=== PATIENT | female | born 1955 | race Caucasian/White ===

== ENCOUNTER 2017-06-06 09:07 | Inpatient (IN) | payer MEDICARE ==
[~2017-06-06] VITALS: Ht 170.1 cm; Wt 91.9 kg
--- NOTE | ~2017-06-06 | PR ---
[place], [place] PROGRESS NOTE NAME: EFREN BARDALES UNIT #: [id number] ROOM: 312 DOCTOR: DIPTI RENTERIA MD BIRTHDATE: [birth year] DOS: 06/15/2017 CHIEF COMPLAINT: "I am okay." SUMMARY OF THE VISIT: The patient was interviewed as she was eating her breakfast. As opposed to yesterday, she was much more alert. She made eye contact and she was able to engage in somewhat meaningful conversation. She did not just cart [place] respond yes to everything, but did seem to attempt to engage and answer appropriately. Most of her responses still continued to be very short and simple, but there did seem to be at least the effort made to engage. MENTAL STATUS: She is alert and oriented to self. It is unclear if she realizes she is in the hospital. She is certainly not oriented to time. Mood does seem to be trending towards euthymia. Affect is more appropriate. There is no wagner or psychosis. Short term memory remains exceedingly poor. PLAN: I will maintain her current dose of Remeron and Zyprexa, continue the same doses of the Exelon and Namenda. Engage in individual and james milieu activity, returning to the least restrictive environment when psychiatrically stable. DIPTI RENTERIA MD CM:PNTRANS [id number] DIPTI RENTERIA MD 06/15/17 0946 interface
--- NOTE | ~2017-06-06 | PR ---
[place], [place] PROGRESS NOTE NAME: EFREN BARDALES UNIT #: [id number] ROOM: 312 DOCTOR: BRONWYN FAY MD BIRTHDATE: [birth year] DOS: 06/10/2017 SUBJECTIVE: The patient seen and I spoke with the staff. Per staff, the patient is not throwing up now, she is getting IV fluid. She did not eat anything since last night. The patient was on her bed. She reports doing "okay," but then keeps on repeating yes and yes and not able to engage into any kind of meaningful conversation. MENTAL STATUS EXAMINATION: Pleasant and cooperative. Described her mood as "okay." Affect, mood congruent. Not in any distress. She was repeating the same word that I was asking her. Thought process seems to be disorganized and confabulatory in nature. It does not make any sense. She was not in any distress. PLAN: 1. Continue current medication and care. 2. Continue redirection. 3. Supportive care. BRONWYN FAY MD CM:PNTRANS [phone] BRONWYN FAY MD 06/10/172249 interface
--- NOTE | ~2017-06-06 | PR ---
[place], [place] PROGRESS NOTE NAME: EFREN BARDALES UNIT #: [id number] ROOM: 312 DOCTOR: DIPTI RENTERIA MD BIRTHDATE: [birth year] DOS: 06/17/2017 CHIEF COMPLAINT: "Yes." SUMMARY OF THE VISIT: The patient was interviewed as she rested quietly in bed. She engaged in conversation, half the time it was nonsensical, at other times, she almost strung entire sentence together. She still is very confused and disoriented, but is able to be much more engaging. She made eye contact and did at least attempt to converse. There was no agitation or aggression. There still seems to be a component of depression present, but there is no wagner or psychotic symptoms noted. MENTAL STATUS: She is alert and oriented to self, possibly place, although doubtful not to time. Mood remains still depressed. Affect is blunted and constricted. She is on the verge of tears at times. There is no wagner, hypomania or psychosis. She processes information extremely slowly. Responses are nonsensical at times and other times they are on the border of being sensical. Short term, intermediate memory are poor. PLAN: I will maintain her current psychotropic regimen, continue to engage in individual and james milieu activity with the plan to return to the least restrictive environment when psychiatrically stable. DIPTI RENTERIA MD CM:PNTRANS [id number] DIPTI RENTERIA MD 06/17/17 1031 interface
--- NOTE | ~2017-06-06 | PR ---
[place], [place] PROGRESS NOTE NAME: EFREN BARDALES UNIT #: [id number] ROOM: 312 DOCTOR: DIPTI RENTERIA MD BIRTHDATE: [birth year] DOS: 06/12/2017 CHIEF COMPLAINT: "I don't feel good." SUMMARY OF THE VISIT: The patient was interviewed in the dining area where she sat with an entire plate of breakfast in front of her untouched. She reported to me that she did not feel good and was actually able to elaborate that she was somewhat nauseated. When I told her I would get her something for it, she thanked me. She actually engaged in more meaningful conversation today than she had previously. She did not just [place] respond yes to everything; in fact, she was able to carry on somewhat of a conversation. MENTAL STATUS: She remains alert and oriented to self only; however, it is unclear if she realizes she is in the hospital and she is certainly not oriented to time. Mood still seems somewhat depressed and her responses are short, simple and she speaks almost in a whisper at times. There is no symptom suggestive of wagner or hypomania. There is no agitation or aggression. No overt auditory or visual hallucinations or paranoia. PLAN: I will go ahead and renew her p.r.n. Ativan in case she requires intervention. I will check a valproic acid level in the morning to ensure that it is therapeutic and not subtherapeutic or too high. We will continue to engage in individual and james milieu activity with the plan to seek a long-term care placement. DIPTI RENTERIA MD CM:PNTRANS [phone] DIPTI RENTERIA MD 06/12/17 1036 interface
--- NOTE | ~2017-06-06 | PR ---
[place], [place] PROGRESS NOTE NAME: EFREN BARDALES UNIT #: [id number] ROOM: 312 DOCTOR: DIPTI RENTERIA MD BIRTHDATE: [birth year] DOS: 06/11/2017 CHIEF COMPLAINT: "Oh yes, there it is of course." SUMMARY OF THE VISIT: The patient was interviewed in the dining area. She had completed her breakfast. She was sitting quietly watching television. She attempted to engage in conversation, but she was so disjointed, disoriented and fragmented she could not carry on a simple conversation. Most of her responses were nonsensical, still a mix of perseveration and echolalia. She was pleasant, however. Nurses report some issues with nausea and vomiting, perhaps related to the Trintellix. Mood still seems to be depressed. Sleep and appetite are somewhat disturbed. MENTAL STATUS: She is alert and oriented to self only. Her disjointed, disorganized, disoriented speech is fragmented and piecemeal. She is unable to form even a complete sentence. It is unclear if there are delusions because she is not able to make much sense at all. PLAN: I will discontinue the Trintellix in lieu of Remeron 15 mg at bedtime. Remeron should dramatically aid sleep and appetite. It should also decrease her nausea and vomiting. We will continue to engage in individual and james milieu activity, returning to the least restrictive environment when psychiatrically stable. DIPTI RENTERIA MD CM:PNTRANS [phone] DIPTI RENTERIA MD 06/11/17 0945 interface
--- NOTE | ~2017-06-06 | CON ---
[place], [place] REPORT OF CONSULTATION NAME: EFREN BARDALES UNIT #: [id number] ROOM: 312 DOCTOR: SHIRLEY ALMANZAR ED.D (ALEJANDRO) BIRTHDATE: [birth year] DOS: 06/11/2017 HISTORY OF PRESENT ILLNESS: The patient is a 61-year-old female referred by Dr. Goodman for competency evaluation. At the present time, she is on the [facility]. She is , but cannot answer questions regarding her marriage or children. This patient's medical history is pertinent for renal failure, dementia and anemia. Her medications include Remeron, Depakote, Reglan, Exelon and Namenda. I do not know her substance abuse history, but she does not use any substances at the present time. This patient was awake, alert and oriented to person only. She has no idea where she is or what the year is or what the date She could not name her family members and is clearly not competent to make informed healthcare decisions. In my opinion, guardianship should be established. I did complete paperwork for probate court for guardianship. Her short and long-term memories are markedly impaired. DIAGNOSES: Major neurocognitive disorder -- Alzheimer's disease. RECOMMENDATIONS: In my opinion, this patient needs a guardian. Thank you very much for this consult. SHIRLEY ALMANZAR ED.D CM:CONSTR:REPORT OF CONSULTATION 1307 06/11/172053 interface DIPTI GOODMAN MD
--- NOTE | ~2017-06-06 | PR ---
[place], [place] PROGRESS NOTE NAME: EFREN BARDALES UNIT #: [id number] ROOM: 312 DOCTOR: DIPTI RENTERIA MD BIRTHDATE: [birth year] DOS: 06/08/2017 CHIEF COMPLAINT: "Oh, yes." SUMMARY OF THE VISIT: The patient was interviewed as she sat in the dining area. Upon approach, she did attempt to engage in conversation; however, she remains horribly confused and her responses are nonsensical and disjointed. She said yes to most everything that was asked. During the period of time that I was interviewing her, she did laugh a little bit under her breath. I am unclear whether this represents a pseudobulbar affective symptom or not. I have discussed this with the nurses to monitor this. They have noticed one spontaneous crying episode as well. We will continue to monitor this over the next couple of days to determine whether or not we want to go ahead and initiate Nuedexta therapy. MENTAL STATUS: She is alert and oriented to self. I doubt very much she realizes where she is at and she is certainly not oriented to time. Mood does still seem to be depressed. Whether this is solely depression or some pseudobulbar affect is unclear. There is no hypomania or wagner. There are no auditory or visual hallucinations noted. Short term memory is exceedingly poor. PLAN: At the present time, I will maximize out the dose of Trintellix to 20 mg a day, hoping to impact positively on her mood as well as improving cognition and concentration. I will maximize Exelon patch out as well, bringing it from 9.5 to 13.3 mg daily. Nurses will monitor over the next couple of days for episodes of inappropriate laughing or crying and then we will make a decision regarding the Nuedexta therapy. We will continue to engage her in individual and james milieu activity, returning to the least restrictive environment when psychiatrically stable. DIPTI RENTERIA MD CM:PNTRANS 1021 DIPTI RENTERIA MD 06/08/17 1019 interface
--- NOTE | ~2017-06-06 | PR ---
[place], [place] PROGRESS NOTE NAME: EFREN BARDALES UNIT #: [id number] ROOM: 312 DOCTOR: DIPTI RENTERIA MD BIRTHDATE: [birth year] DOS: 06/13/2017 CHIEF COMPLAINT: The patient was very somnolent. SUMMARY OF THE VISIT: The patient was attempted to be interviewed just before she entered the court hearing for continued length of stay. She was rather somnolent. She was visibly shaking because she was chilled. Nurses did obtain for her a heated blanket which did seem to help. She remains grossly confused and disoriented episodically compliant and noncompliant with her medications. She does continue to make herself gag with some of the medicines and has actually vomited several times after taking her pills. MENTAL STATUS: Limited due to her level of somnolence, but she remains grossly confused and disorganized. PLAN: At this point is to discontinue the Depakote as these pills tend to be rather large in size and may be actually triggering a gag response. I will switch the Remeron to Remeron SolTab which will help with compliance. I will add Risperdal M-Tab 0.5 mg twice daily to decrease some of the delusions and the mood lability. We will continue to engage in individual and james milieu activity with the ultimate plan to return to the least restrictive environment when psychiatrically stable. DIPTI RENTERIA MD CM:PNTRANS [id number] DIPTI RENTERIA MD 06/13/17 1019 interface
--- NOTE | ~2017-06-06 | WRIGHTHP ---
[place], [place] PATIENT HISTORY AND PHYSICAL EXAM NAME: EFREN BARDALES UNIT #: [id number] ROOM: 312 DOCTOR: DIPTI RENTERIA MD BIRTHDATE: [birth year] DOS: 06/07/2017 CHIEF COMPLAINT: Yes that is right, yes" SUMMARY: OF THE VISIT: This is a 61-year-old white female who was admitted to the [facility] due to a significant change in mental status. The patient had been residing at home with her and manager corporate strategy and has become increasingly more verbal and physically aggressive. The patient has been resistive to care and has become aggressive while attempting ADLs. Most recently, she has also verbalized that she wanted to kill herself, stating that life is not worth living. The patient has a history of end-stage dementia and is extremely confused and disoriented and may require placement ultimately when she is medically stabilized. PAST MEDICAL HISTORY: Remarkable for anemia, unknown renal disease and an unspecified disorder of the ureters. MENTAL STATUS: The patient is alert and oriented to self. Her responses are short, simple and at times nonsensical. She is rather perseverative and also engages in echolalia. The patient is extremely confused and disjointed in her thinking and is unable to even form a simple sentence that makes sense. She does have significant processing difficulty. Short-term memory seems horribly disturbed as does intermediate memory. DIAGNOSES: Major depression, recurrent, rule out intermittent explosive disorder. PLAN: I have switched her from Aricept to Exelon patch and started her at 4.6 mg a day, which I will go ahead and increase to 9.5 mg daily. I have maintained her on Namenda 10 mg twice daily. Given the fact that there is a depressive component present, I will add Trintellix 10 mg a day. The Trintellix has been shown also to improve cognitive functioning. At this point, we will go ahead and proceed with a PASAR and look for possible placement. Given the amount of confusion and level of care that she requires, I do not believe it is safe for her to return home. She requires 24-hour supervision to prevent harm to self and others. We will discharge then when psychiatrically stable. [place], [place] PATIENT HISTORY AND PHYSICAL EXAM NAME: EFREN BARDALES UNIT #: [id number] ROOM: [facility] DOCTOR: DIPTI RENTERIA MD BIRTHDATE: [birth year] DIPTI RENTERIA MD CM:HISPHYS:PATIENT HISTORY AND PHYSICAL EXAMINATION 3 2 DIPTI RENTERIA MD 06/07/17 0910 interface
--- NOTE | ~2017-06-06 | PR ---
[place], [place] PROGRESS NOTE NAME: EFREN BARDALES UNIT #: [id number] ROOM: 312 DOCTOR: DIPTI RENTERIA MD BIRTHDATE: [birth year] DOS: 06/16/2017 CHIEF COMPLAINT: "Yes." SUMMARY OF THE VISIT: The patient was interviewed or attempted to be interviewed as she rested quietly in bed. She engaged in brief conversation. Most of it was nonsensical, but she did attempt to make eye contact and did attempt to respond. This is in perdomo contrast to her previous behavior. She seems more alert and more engaging. MENTAL STATUS: She is alert and oriented to self. It is unclear if she realizes she is in the hospital. She is certainly not oriented to time. Mood does seem to be stabilizing and she is more euthymic. Affect is much more appropriate. She still is fragmented and disjointed in her thinking. She rambles at times nonsensically. Short-term memory is exceedingly poor. PLAN: I will augment with Deplin at this point. I do not have genetic testing to support the use, but at this point, it would not hurt her to supplement for a neurotransmitter synthesis. She is so decompensated at such a young age, we will see what we can do to impact positively on her cognitive status. We will engage in individual and james milieu activity, returning to the least restrictive environment when psychiatrically stable. DIPTI RENTERIA MD CM:PNTRANS [phone] DIPTI RENTERIA MD 06/16/17 0908 interface
--- NOTE | ~2017-06-06 | PR ---
[place], [place] PROGRESS NOTE NAME: EFREN BARDALES UNIT #: [id number] ROOM: 312 DOCTOR: DIPTI RENTERIA MD BIRTHDATE: [birth year] DOS: 06/18/2017 CHIEF COMPLAINT: "Oh ya thank you." SUMMARY OF THE VISIT: The patient was interviewed as she was wheeling herself down the [place]a. She stopped and engaged in conversation with me. She still remains confused, but does attempt to make good eye contact and attempts to converse more so than she had previously. While she does say yes frequently, she also intermixes that with short sentences and then at times inappropriate comments. She has not been agitated or aggressive. MENTAL STATUS: She is alert and oriented to self. It is unclear if she realizes she is in the hospital and she is certainly not oriented to time. Mood does seem to be strongly trending towards euthymia. Affect is much more appropriate. There is no symptom suggestive of wagner or hypomania. There are no gross psychotic symptoms. Short term memory is exceedingly poor. PLAN: I will maintain her current psychotropic regimen, continue to engage her in individual and james milieu activity with the ultimate plan to discharge to the least restrictive environment when stable. DIPTI RENTERIA MD CM:PNTRANS [phone] DIPTI RENTERIA MD 06/18/17 0936 interface
--- NOTE | ~2017-06-06 | PR ---
[place], [place] PROGRESS NOTE NAME: EFREN BARDALES UNIT #: [id number] ROOM: 312 DOCTOR: DIPTI RENTERIA MD BIRTHDATE: [birth year] DOS: 06/14/2017 CHIEF COMPLAINT: The patient was nonverbal and did not make eye contact. SUMMARY OF THE VISIT: The patient was attempted to be interviewed as she was to eat her breakfast in the dining area and entire tray of breakfast sat in front of her. The nurse's aide did on several occasions attempt to offer her food. She stared off blankly straight into space. As I kneel down next to her and attempted to engage her in conversation, she did not make any effort to make eye contact. In the past, she at least verbalized yes or no answers; at this point in time, she made no attempt to respond in any way at all. MENTAL STATUS: It is limited due to her lack of participation. Nurses report significant decrease in p.o. intake as well as increased depression. PLAN: I will discontinue her Risperdal M-Tab and utilize Zyprexa Zydis 5 mg at bedtime. This should augment the effectiveness of the antidepressant better as well as significantly stimulating appetite. I will check a CMP just to make certain that medically she is not compromised. We will engage in individual and james milieu activities, returning to the least restrictive environment when psychiatrically stable. DIPTI RENTERIA MD CM:PNTRANS 0945 DIPTI RENTERIA MD 06/14/17 0943 interface
--- NOTE | ~2017-06-06 | PR ---
[place], [place] PROGRESS NOTE NAME: EFREN BARDALES UNIT #: [id number] ROOM: 312 DOCTOR: BRONWYN FAY MD BIRTHDATE: [birth year] DOS: 06/09/2017 SUBJECTIVE: The patient seen and spoke with the staff. Per staff, patient was throwing up all day yesterday after the increment of Trintellix and also Exelon. This morning when I went to see her, she was in the bed, incoherent, talking nonsensical. MENTAL STATUS EXAMINATION: The patient was pleasant and cooperative. Thought process was disorganized with confabulation, incoherent, not in acute distress. Not a threat to herself or anyone else. PLAN: 1. I will reduce Trintellix to 5 mg twice a day. 2. Continue redirection. 3. Supportive care. 4. Encourage p.o. fluid. BRONWYN FAY MD CM:PNTRANS [id number] BRONWYN FAY MD 06/10/17 0030 interface
[2017-06-06] MEDS ORDERED: NAMENDA10 MG PO (09:12)
[2017-06-06] MEDS ORDERED: ARICEPT10 M1 PO (09:13)
[2017-06-06] MEDS ORDERED: SEROQUEL25 MG PO (09:13)
[2017-06-06 13:27] VITALS: BP 116/73
[2017-06-06 20:00] VITALS: BP 120/80
[2017-06-07 07:04] LABS: BASO % 0.3 % (0.0-1.0); EOS # 0.1 10*3/uL (0.0-0.4); HEMATOCRIT 37.6 % (37.0-47.0); HEMOGLOBIN 12.5 g/dl (12.0-16.0); LYMPH # 2.3 10*3/uL (1.3-4.4); LYMPH % 38.7 % (27.0-41.0); MEAN CELL VOLUME 93.3 fl (81.0-99.0); MEAN CORPUSCULAR HGB CONC 33.2 g/dl (33.0-37.0); MEAN PLATELET VOLUME 10.1 fl (9.6-12.3); MONO # 0.5 10*3/uL (0.1-1.0); MONO % 8.1 % (3.0-9.0); NEUT % 50.7 % (47.0-73.0); PLATELET COUNT AUTOMATED 233 10*3/uL (130-400); RED BLOOD COUNT 4.03 10*6/uL (4.10-5.10); RED CELL DISTRI WIDTH 12.3 % (0-14.5); WHITE BLOOD COUNT 5.9 10*3/uL (4.8-10.8)
[2017-06-07 07:13] LABS: CHLORIDE 109 mmol/L (98-107); SODIUM 144 mmol/L (136-145)
[2017-06-07 07:45] LABS: ALKALINE PHOSPHATASE 69 U/L (45-117); BUN 14 mg/dl (7-24); CHOLESTEROL 138 mg/dL (<200); CREATININE 0.91 mg/dL (0.55-1.02); HDL CHOLESTEROL 46 mg/dl (40-60); LDL CHOLESTEROL 81 mg/dL (9-159); SGOT/AST 23 IU/L (3-35); SGPT/ALT 36 U/L (12-78); THYROID STIM HORMONE (HS) 0.477 uIU/ml (0.358-4.75); TOTAL PROTEIN 6.4 gm/dL (6.4-8.2); TRIGLYCERIDES 56 mg/dl (<150); VLDL CHOLESTEROL 11 mg/dL (6-40)
[2017-06-07 08:13] VITALS: BP 148/78
[2017-06-07 09:21] LABS: VITAMIN D, 25-HYDROXY 25.6 ng/mL (30-100)
[2017-06-07 19:40] VITALS: BP 129/74
[2017-06-08 08:20] VITALS: BP 105/68
[2017-06-08 10:06] LABS: BILIRUBIN NEGATIVE (NEGATIVE); BLOOD NEGATIVE (NEGATIVE); CLARITY CLOUDY (CLEAR); COLOR YELLOW (YELLOW); GLUCOSE NEGATIVE (NEGATIVE); KETONE TRACE (NEGATIVE); LEUKO ESTERASE NEGATIVE (NEGATIVE); NITRITE NEGATIVE (NEGATIVE); SPECIFIC GRAVITY >= 1.030 (1.005-1.030)
[2017-06-08 10:25] LABS: BACTERIA TRACE; MUCOUS 3+
[2017-06-08 20:00] VITALS: BP 121/64
[2017-06-09 08:10] VITALS: BP 129/64
[2017-06-09 20:00] VITALS: BP 120/63
[2017-06-10 07:55] VITALS: BP 126/76
[2017-06-10 10:05] LABS: BASO % 0.6 % (0.0-1.0); EOS % 0.7 % (1.0-4.0); HEMATOCRIT 38.9 % (37.0-47.0); HEMOGLOBIN 12.7 g/dl (12.0-16.0); LYMPH % 36.2 % (27.0-41.0); MEAN CELL VOLUME 94.6 fl (81.0-99.0); MEAN CORPUSCULAR HGB 30.9 pg (27.0-31.0); MEAN CORPUSCULAR HGB CONC 32.6 g/dl (33.0-37.0); MEAN PLATELET VOLUME 10.4 fl (9.6-12.3); MONO # 0.5 10*3/uL (0.1-1.0); MONO % 8.6 % (3.0-9.0); NEUT # 2.9 10*3/uL (2.3-7.9); NEUT % 53.7 % (47.0-73.0); PLATELET COUNT AUTOMATED 241 10*3/uL (130-400); RED BLOOD COUNT 4.11 10*6/uL (4.10-5.10); RED CELL DISTRI WIDTH 12.3 % (0-14.5); WHITE BLOOD COUNT 5.4 10*3/uL (4.8-10.8)
[2017-06-10 10:16] LABS: ALKALINE PHOSPHATASE 63 U/L (45-117); BUN 20 mg/dl (7-24); CHLORIDE 111 mmol/L (98-107); POTASSIUM 3.6 mmol/L (3.5-5.1); SGOT/AST 18 IU/L (3-35); SGPT/ALT 24 U/L (12-78); SODIUM 145 mmol/L (136-145); TOTAL PROTEIN 6.3 gm/dL (6.4-8.2)
[2017-06-10 20:14] VITALS: BP 135/84
[2017-06-11 08:37] VITALS: BP 121/63
[2017-06-11 20:00] VITALS: BP 127/72
[2017-06-12 08:05] VITALS: BP 126/69
[2017-06-12 20:20] VITALS: BP 128/72
[2017-06-13 08:06] VITALS: BP 121/64
[2017-06-13 20:00] VITALS: BP 120/74
[2017-06-14 07:57] VITALS: BP 122/78
[2017-06-14 11:09] LABS: ALBUMIN 3.6 gm/dl (3.1-4.5); ALKALINE PHOSPHATASE 74 U/L (45-117); BUN 18 mg/dl (7-24); CHLORIDE 105 mmol/L (98-107); CREATININE 0.87 mg/dL (0.55-1.02); POTASSIUM 3.4 mmol/L (3.5-5.1); SGOT/AST 17 IU/L (3-35); SGPT/ALT 24 U/L (12-78); SODIUM 142 mmol/L (136-145); TOTAL PROTEIN 7.4 gm/dL (6.4-8.2)
[2017-06-14 20:02] VITALS: BP 121/77
[2017-06-15 07:39] VITALS: BP 126/82
[2017-06-15 11:36] LABS: ALBUMIN 3.7 gm/dl (3.1-4.5); ALKALINE PHOSPHATASE 76 U/L (45-117); BUN 21 mg/dl (7-24); CHLORIDE 106 mmol/L (98-107); CREATININE 0.86 mg/dL (0.55-1.02); POTASSIUM 3.4 mmol/L (3.5-5.1); SGOT/AST 21 IU/L (3-35); SGPT/ALT 23 U/L (12-78); SODIUM 140 mmol/L (136-145); TOTAL PROTEIN 7.8 gm/dL (6.4-8.2)
[2017-06-15 21:39] VITALS: BP 116/70
[2017-06-16 07:37] VITALS: BP 118/72
[2017-06-16 20:00] VITALS: BP 120/80
[2017-06-17 08:07] VITALS: BP 116/82
[2017-06-17 20:29] VITALS: BP 125/81
[2017-06-18 07:42] VITALS: BP 113/68
[2017-06-18 19:48] VITALS: BP 110/74
[2017-06-19] MEDS ORDERED: ARICEPT10 M1 PO (06:35)
[2017-06-19] MEDS ORDERED: ZYPREXA5 M1 PO ×2 (06:37→10:16)
[2017-06-19] MEDS ORDERED: REMERON SOLTAB15 MG PO (06:37)
[2017-06-19] MEDS ORDERED: EXEL13.31 T (06:37)
[2017-06-19] MEDS ORDERED: REGLAN5 MG PO (10:04)
[2017-06-19] MEDS ORDERED: REMERON15 M2 PO (10:14)
[2017-06-19] MEDS ORDERED: DEPLIN-ALGAL O1 EAC1 PO (10:15)
[2017-06-19] MEDS ORDERED: NAMENDA10 MG PO (10:22)
[2017-06-19] MEDS ORDERED: GEODON20 MG IM (10:23)
[2017-06-19] MEDS ORDERED: EXELON13.3 MG/21 TD (10:24)
[2017-06-19] MEDS ORDERED: MIRALAX17 GM PO (10:25)
[2017-06-19] MEDS ORDERED: FEROSUL325 MG PO (10:25)
[2017-06-19] MEDS ORDERED: VITAMIN D-32000 UNI1 PO (10:26)
[2017-06-19] MEDS ORDERED: KEPPRA500 MG PO (14:58)
== END 2017-06-19 06:26 | disposition short-term general hospital (02) | DRG 883 ==
LOC: 3N 09:07
PROVIDERS: Psychiatry & Neurology Psychiatry
DX: F63.81 Intermittent explosive disorder (principal); F02.81 Dementia in other diseases classified elsewhere, unspecified severity, with behavioral disturbance; E44.1 Mild protein-calorie malnutrition; G30.0 Alzheimer's disease with early onset; F33.9 Major depressive disorder, recurrent, unspecified; E66.09 Other obesity due to excess calories; N28.9 Disorder of kidney and ureter, unspecified; E87.6 Hypokalemia; D64.9 Anemia, unspecified; E55.9 Vitamin D deficiency, unspecified; Z68.31 Body mass index [BMI] 31.0-31.9, adult

== ENCOUNTER 2017-06-19 06:29 | Inpatient (IN) | payer MEDICARE ==
[~2017-06-19] VITALS: Ht 170.1 cm; Wt 89.8 kg
[2017-06-19] VITALS (9 sets, daily range): BP systolic 95–125; BP diastolic 44–77
[~2017-06-19 06:29] MED LIST: ARICEPT10 M1 PO; NAMENDA10 MG PO; SEROQUEL25 MG PO
[2017-06-19] MEDS ORDERED: ARICEPT10 M1 PO (06:35)
[2017-06-19] MEDS ORDERED: EXEL13.31 T (06:37)
[2017-06-19] MEDS ORDERED: ZYPREXA5 M1 PO ×2 (06:37→10:16)
[2017-06-19] MEDS ORDERED: REMERON SOLTAB15 MG PO (06:37)
[2017-06-19 06:56] LABS: BASO % 0.6 % (0.0-1.0); EOS # 0.2 10*3/uL (0.0-0.4); HEMATOCRIT 43.2 % (37.0-47.0); HEMOGLOBIN 14.2 g/dl (12.0-16.0); LYMPH # 3.1 10*3/uL (1.3-4.4); LYMPH % 45.1 % (27.0-41.0); MEAN CELL VOLUME 94.5 fl (81.0-99.0); MEAN CORPUSCULAR HGB 31.1 pg (27.0-31.0); MEAN CORPUSCULAR HGB CONC 32.9 g/dl (33.0-37.0); MEAN PLATELET VOLUME 10.8 fl (9.6-12.3); MONO # 0.7 10*3/uL (0.1-1.0); MONO % 10.6 % (3.0-9.0); NEUT # 2.8 10*3/uL (2.3-7.9); NEUT % 40.6 % (47.0-73.0); PLATELET COUNT AUTOMATED 260 10*3/uL (130-400); RED BLOOD COUNT 4.57 10*6/uL (4.10-5.10)
[2017-06-19 07:05] LABS: ACT PARTIAL THROMBO TIME 21.5 SECONDS (20.8-31.5)
[2017-06-19 07:11] LABS: ALBUMIN 3.5 gm/dl (3.1-4.5); ALKALINE PHOSPHATASE 74 U/L (45-117); BUN 14 mg/dl (7-24); CHLORIDE 107 mmol/L (98-107); CREATININE 1.11 mg/dL (0.55-1.02); POTASSIUM 3.9 mmol/L (3.5-5.1); SGOT/AST 51 IU/L (3-35); SGPT/ALT 28 U/L (12-78); SODIUM 144 mmol/L (136-145); TOTAL PROTEIN 7.1 gm/dL (6.4-8.2)
[2017-06-19 07:18] LABS: ACETAMINOPHEN (TYLENOL) < 2.0 ug/ml (10-30); TROPONIN I < 0.015 ng/ml (<0.045)
[2017-06-19 07:54] LABS: BILIRUBIN NEGATIVE (NEGATIVE); BLOOD 1+ (NEGATIVE); CLARITY SL CLOUDY (CLEAR); COLOR YELLOW (YELLOW); GLUCOSE NEGATIVE (NEGATIVE); KETONE NEGATIVE (NEGATIVE); LEUKO ESTERASE NEGATIVE (NEGATIVE); NITRITE NEGATIVE (NEGATIVE); PH 5.5 (5.0-9.0); SPECIFIC GRAVITY >= 1.030 (1.005-1.030); UROBILINOGEN 0.2 E.U./dl (0.2-1.0)
[2017-06-19 08:03] LABS: MUCOUS 1+; RBC 0-2 rbc/hpf (0-2)
[2017-06-19 08:12] LABS: URINE AMPHETAMINES < 1000 (1000ng/ml); URINE BARBITURATES < 200 (200ng/ml); URINE BENZODIAZEPINES < 200 (200ng/ml); URINE CANNABINOIDS (THC) < 50 (50ng/ml); URINE COCAINE < 300 (300ng/ml); URINE METHADONE < 300 (300ng/ml); URINE OPIATES < 300 (300ng/ml); URINE PHENCYCLIDINE < 25 (25ng/ml)
[2017-06-19] MEDS ORDERED: REGLAN5 MG PO (10:04)
[2017-06-19] MEDS ORDERED: REMERON15 M2 PO (10:14)
[2017-06-19] MEDS ORDERED: DEPLIN-ALGAL O1 EAC1 PO (10:15)
[2017-06-19] MEDS ORDERED: NAMENDA10 MG PO (10:22)
[2017-06-19] MEDS ORDERED: GEODON20 MG IM (10:23)
[2017-06-19] MEDS ORDERED: EXELON13.3 MG/21 TD (10:24)
[2017-06-19] MEDS ORDERED: FEROSUL325 MG PO (10:25)
[2017-06-19] MEDS ORDERED: MIRALAX17 GM PO (10:25)
[2017-06-19] MEDS ORDERED: VITAMIN D-32000 UNI1 PO (10:26)
[2017-06-19] MEDS ORDERED: KEPPRA500 MG PO (14:58)
== END 2017-06-19 21:17 | disposition short-term general hospital (02) | DRG 100 ==
LOC: ED 06:29 → EDHOLD 08:31 → ICCU 09:03
PROVIDERS: Internal Medicine; Student in an Organized Health Care Education/Training Program
DX: R56.9 Unspecified convulsions (principal); N17.0 Acute kidney failure with tubular necrosis; E72.20 Disorder of urea cycle metabolism, unspecified; E87.2 Acidosis; F63.81 Intermittent explosive disorder; R73.9 Hyperglycemia, unspecified; R74.0 Nonspecific elevation of levels of transaminase and lactic acid dehydrogenase [LDH]; F03.90 Unspecified dementia, unspecified severity, without behavioral disturbance, psychotic disturbance, mood disturbance, and anxiety; E66.9 Obesity, unspecified; E55.9 Vitamin D deficiency, unspecified; Z68.31 Body mass index [BMI] 31.0-31.9, adult; Z79.899 Other long term (current) drug therapy; Z82.0 Family history of epilepsy and other diseases of the nervous system